=== PATIENT | female | born 1965 | race Caucasian/White ===

== ENCOUNTER 2017-04-25 11:56 | Day surgery (SDC) | payer OTHER ==
--- NOTE | 2017-04-24 10:27 | HP ---
[facility] - Chief Complaint Chief Complaint: right knee pain - Past Medical History Allergies/Adverse Reactions: Allergies Allergy/AdvReac Type Severity Reaction Status Date / Time No Known Drug Allergies Allergy Verified 04/11/17 14:06 ...LMP: 12/26/16 - Current Medications Current Medications: Home Medications Medication Instructions Recorded Atorvastatin Ca [Lipitor] 20 mg PO HS 04/11/17 Cholecalciferol (Vitamin D3) 50,000 unit PO WEEKLY 04/11/17 [Vitamin D3] Lisinopril 10 mg PO HS 04/11/17 Metformin HCl 500 mg PO HS 04/11/17 Metoprolol Tartrate 25 mg PO HS 04/11/17 Satellite Physical Exam - Physical Examination General Appearance: Well Nourished, Well Developed, Alert & Oriented x3 ENT: Clear Lung: Normal air movement Heart: Regular rate & rhythm Extremities: Other (right knee- + swelling, + ttp medially, decr rom, nvi xrays show severe medial compartment djd) Neurological: Intact, Alert, Oriented Satellite Impression/Plan - Impression/Plan Impression: right medial djd Operative Procedure: right medial isidro ukr Date to be Performed: 04/25/17
[2017-04-25 12:23] VITALS: BMI 35.7
[2017-04-25] MEDS ORDERED: CEFAZOLIN 1 GM/D5W 50 ML IVPB ONE (12:33)
[2017-04-25] MEDS ORDERED: CELECOXIB 200 MG CAPSULE PO ONE ×2 (12:33→12:55)
[2017-04-25] MEDS ORDERED: TRANEXAMIC ACID 1000 MG/10 ML VIAL IVPUSH ONE (12:33)
[2017-04-25] MEDS ORDERED: GABAPENTIN 300 MG CAPSULE (FP) PO ONE ×2 (12:33→12:55)
[2017-04-25] MEDS ORDERED: ROPIVICAINE 0.2%/MORPH PF/KETOROLAC - 51ML DISP.SYRINGE IA ONE ×3 (12:33→16:39)
[2017-04-25] MEDS ORDERED: oxyCODONE HCL 10 MG SUSTAINED ACTING TABLET PO ONE ×2 (12:33→12:55)
[2017-04-25] MEDS ORDERED: ceFAZolin SODIUM 1 GM VIAL ONE ×2 (13:21→13:23)
[2017-04-25] MEDS ORDERED: VANCOMYCIN 1,000 MG VIAL (RESTRICTED TO ID ONLY) ONE (13:21)
[2017-04-25] MEDS ORDERED: ONDANSETRON 4 MG/2 ML VIAL IVPUSH PRN (14:20)
[2017-04-25] MEDS ORDERED: oxyCODONE HCL 5 MG TABLET PO PRN (14:21)
[2017-04-25] MEDS ORDERED: LACTATED RINGERS SOLUTION 1,000 ML IV SCH ×2 (14:30→17:45)
[2017-04-25] MEDS ORDERED: THROMBIN (BOVINE) 5,000 UNIT VIAL TP ONE ×2 (16:22→16:44)
[2017-04-25] MEDS ORDERED: GELATIN, ABSORBABLE 100 EACH SPONGE TP ONE (16:22)
[2017-04-25] MEDS ORDERED: VANCOMYCIN 1,000 MG VIAL (RESTRICTED TO ID ONLY) IVPB ONE (16:39)
[2017-04-25] MEDS ORDERED: GELATIN, ABSORBABLE 12-7MM EACH SPONGE TP ONE (16:44)
[2017-04-25] MEDS ORDERED: ONDANSETRON 4 MG/2 ML VIAL IVPB PRN (17:33)
[2017-04-25] MEDS ORDERED: MAG HYDROX/AL HYDROX/SIMETH 30 ML UNIT-DOSE CUP PO PRN (17:33)
--- NOTE | 2017-04-25 17:35 | OP ---
Operative Note - Note: Operative Date: 04/25/17 (tiki) Pre-Operative Diagnosis: right knee medial djd Operation: right medial isidro ukr Post-Operative Diagnosis: Same as Pre-op Surgeon: Poli Leavitt Nuclear Radiation Engineer: Stephen Candelaria Anesthesia: Spinal, Local Specimens Removed: bone fragments Estimated Blood Loss (mls): 100 Operative Report Dictated: Yes
[2017-04-25] MEDS ORDERED: PROMETHAZINE HCL 25 MG/1 ML VIAL ONE (18:33)
[2017-04-25] MEDS ORDERED: PROMETHAZINE HCL 25 MG/1 ML VIAL IVPUSH ONE (18:35)
--- NOTE | 2017-04-25 19:39 | SPEC ---
DATE OF OPERATION: DATE OF DICTATION: 04/25/2017 PREOPERATIVE DIAGNOSIS: Right knee medial compartment osteoarthritis. POSTOPERATIVE DIAGNOSIS: Right knee medial compartment osteoarthritis. PROCEDURE: Right knee robotically assisted partial knee replacement/Makoplasty with navigation (right knee medial Makoplasty). SURGEON: Mile Carrion M.D. MANAGER SECURITY: Caleb Fitzgerald ANESTHESIA: Spinal anesthesia with sedation. DRAINS: None. COMPLICATIONS: None. SPECIMEN: Cartilage and bone right knee. BLOOD LOSS: None. BLOOD GIVEN: None. FLUID REPLACEMENT: 700 mL. INDICATION: The patient is a 51-year-old female with preoperative diagnosis of significant grade 4 osteoarthritis of the medial compartment of the right knee and clinical pain in the medial compartment. After understanding the potential risks, complications, alternatives, benefits to surgery versus nonsurgical treatment, the patient elected to pursue this procedure. DESCRIPTION OF PROCEDURE: The patient was brought into the operating room, peripheral IV placed and IV sedation given. One gram of IV Ancef was given. Spinal anesthesia and then MAC anesthesia was induced. Tourniquet was applied. The right upper leg was prepped and draped in the usual sterile fashion. The preoperative CT scan, the computer, and the robot were brought into position. The two femoral Eligio pins were placed by making the appropriate measurement and then using a No. 15 scalpel blade to cut through the skin and a hemostat to dissect down to the anterior aspect of the femur and the anterior aspect of the tibia. The tibia and femoral arrays were placed. A 3.5-inch incision was made along the medial aspect of the knee joint, patella and proximal tibia. Subcutaneous hemostasis was achieved with the Bovie cautery. Dissection was done with the Bovie down to the knee retinaculum which was incised, the thick synovial fluid evacuated. There were some osteophytes on the medial aspect of the patella which were debrided with the rongeur. After the patelloplasty, some small bleeders were cauterized and Hohmann retractors were placed to retract the medial soft tissues on the proximal aspect of the tibia and some mild amount of periosteal dissection was performed. Once this was done, exposing the proximal and medial tibia and the proximal and medial femur, the two positioning buttons were placed. Next, using the green sensor, we began positioning with both the medial and lateral malleolus and then putting the knee through progressively larger circles in a clockwise direction, gaining location data with the femoral and tibial array. Next, we did a medial meniscectomy and correlated the femoral and tibial positions with the positioner and the buttons. Next, we registered 40 points of position with a combination of the handheld registration device and the arrays in the computer. Once this was done, we put the knee through a range of motion. The patient had a small varus forming and a small flexion contraction both of which were corrected, taking multiple measurements including at 0 degrees, 30 degrees, 60 degrees, 90 degrees and 120 degrees. Once this was done and we evaluated the flexion and extension tension graphs and it was seen to be quite good and I was quite happy with the tension throughout the full range of motion. No other adjustments were needed to be made. This was a size No. 4 medial femur and size No. 3 medial tibial component with an 8mm polyethylene tray. We locked in the prosthesis size combination, and began our resection. The robot was brought into place. Registration was done. Using the standard Makoplasty technique, I was able to use a round aga to take out the appropriate amount of bone from the distal femur and the proximal tibia. The area was copiously irrigated and washed out. A rongeur was used to take away some marginal osteophytes and overhanging cartilage. It all looked quite good; it was quite smooth. I saw no reason for any additional resection. We then put the leg up, applied the tourniquet to 300 mmHg. We used Thrombin-soaked Gelfoam on the bony beds for hemostasis and then a dry lap pad. We mixed one bag of Simplex cement. We opened the real prosthesis, which would be the Makoplasty medial femur No. 4 and the medial Makoplasty tibial No. 5. These were precoated on their undersurface with cement. The Thrombin-soaked Gelfoam was removed, the area copiously irrigated and washed out, dried, and cement placed into the holes and onto the bone, first of the femur. The femoral component was applied, tapped into place. The excess cement was removed and then the same procedure for the tibia. Once the excess cement was all removed, I put in a No. 8 trial polyethylene tray and put the knee into extension for more compression. I was able to put the knee through a full range of motion, achieving full extension, full flexion well past 100 degrees overall. I was quite happy with the position of the prosthesis. We let it dry. Excess cement was removed. Again, it was tested, seen to be quite good and therefore, a real polyethylene tray was placed in the knee. Once this was done, the area was copiously irrigated and washed out again. A Hemovac drain was placed. The deep knee retinaculum was repaired with No. 1 Tycron suture, 2-0 Vicryl sutures to close the deep dermal layer. Final skin reapproximation was done with a running subcuticular 3-0 V-Loc suture. 3-0 nylon was used to close the proximal and distal holes where the Steinmann pins were for the femoral and tibial arrays. The area was copiously irrigated and washed out, covered in Xeroform. A cocktail of Morphine and Bupivacaine was injected in and around the soft tissue of the knee. The main incision was covered with Steri strips as well. The area was also covered with 4 x 4 gauze, ample Webril, ABDs, and Anthony bandages. The tourniquet was taken down after only being up for 20 minutes. There were no complications during the case. The patient tolerated the procedure quite well and was brought to the regular recovery room in stable condition. Total operative time 65 minutes. Size of femoral component is a 3, tibial component is a 3, and the polyethylene inset is a 10-mm. There were no complications during the case. There was no blood loss. The patient tolerated the procedure quite well and was brought to the regular recovery room in stable condition. MILE CARRION M.D. [id number]
[2017-04-25] MEDS: CEFAZOLIN 2 GM/D5W 50 ML IVPB SCH (21:20)
[2017-04-25] MEDS: SENNOSIDES/DOCUSATE COMBO (SENNA PLUS) TABLET (UD) PO SCH (21:21)
[2017-04-25] MEDS: INSULIN SLIDING SCALE (NOVOLOG) 1 VIAL SQ SCH (21:21)
[2017-04-25] MEDS: oxyCODONE HCL 5 MG TABLET PO PRN (21:39)
[2017-04-25] MEDS ORDERED: ATORVASTATIN CA 20 MG TABLET (FP) PO SCH (22:00)
[2017-04-25] MEDS: LISINOPRIL 10 MG TABLET (FP) PO SCH (22:28)
[2017-04-26] MEDS: oxyCODONE HCL 5 MG TABLET PO PRN ×3 (01:16→15:56)
[2017-04-26] MEDS: CEFAZOLIN 2 GM/D5W 50 ML IVPB SCH (01:42)
[2017-04-26] MEDS: INSULIN SLIDING SCALE (NOVOLOG) 1 VIAL SQ SCH ×2 (06:24→14:23)
[2017-04-26] MEDS ORDERED: ASPIRIN 325 MG TABLET PO SCH (08:00)
--- NOTE | 2017-04-26 08:16 | PN ---
Progress Note (short form) - Note Progress Note: Ortho Pt seen and examined s/p right medial isidro ukr pod #1 Selected Entries 04/26/17 06:00 Temperature 97.7 F Pulse Rate 60 Respiratory 19 Rate Blood Pressure 105/49 dressing c/d/i, calf soft, nt rom 0-40, nvi a/p PT dvt ppx pain control d/c home today f/u in 1 week
--- NOTE | 2017-04-26 08:17 | DS ---
Physical Examination Vital Signs: Vital Signs Temperature 97.7 F 04/26/17 06:00 Pulse Rate 60 04/26/17 06:00 Respiratory Rate 19 04/26/17 06:00 Blood Pressure 105/49 04/26/17 06:00 O2 Sat by Pulse Oximetry (%) 94 L 04/26/17 06:30 Discharge Summary Reason For Visit: OSTEOARTHRITIS Procedures: Principal: s/p right medial isidro ukr Hospital Course: admitted for elective right medial isidro ukr, uneventful post-op, stable for d/c Condition: Good - Instructions Diet, Activity, Other Instructions: Post-op Instructions-Partial Knee Replacement Call the office for a follow-up appointment in 1 week - [phone] Aspirin 325mg daily for 6 weeks. Pain medication was sent into your pharmacy. Apply Graduated Compression Stockings (TEDs) to both lower extremities- remove daily for hygiene ONLY Apply Sequential Compression Device (SCDs) to both Lower extremities remove for PT and hygiene ONLY Apply cold packs to affected area for 15 minutes every 2 hours. Physical Therapist will come to your home for the first 5 days. You will be set up with outpatient PT at your first post-operative visit. Patient may ambulate as tolerated-encourage self care (at least every 2-3 hours while awake) with walker or cane Maintain Aquacel (waterproof) dressing to operative wound (will be removed by surgeon at first office visit) Shower with Aquacel dressing in place-if Aquacel integrity compromised, remove and apply dry sterile dressing and notify Orthopedist. DO NOT SHOWER unless Orthopedists approves without Aquacel dressing CONTACT THE OFFICE FOR ANY CHANGE IN YOUR CONDITION (for example-fever greater than 102 degrees,excessive bleeding from operative site, purulent drainage, severe swelling or pain) GO TO THE EMERGENCY ROOM IF THERE IS A MEDICAL EMERGENCY Knee Precautions: * Keep a rolled towel under affected heel while in bed or chair (to keep knee in extension) * Keep affected leg elevated except during mealtimes * DO NOT PLACE PILLOW UNDER AFFECTED KNEE * If you have any questions, please do not hesitate to call the office - [phone]. Referrals: Poli Leavitt MD [Staff Physician] - Disposition: VNS/HOME HEALTH CARE - Home Medications Comprehensive Discharge Medication List: Ambulatory Orders Atorvastatin Ca [Lipitor] 20 mg PO HS 04/11/17 Cholecalciferol (Vitamin D3) [Vitamin D3] 50,000 unit PO WEEKLY 04/11/17 Lisinopril 10 mg PO HS 04/11/17 Metformin HCl 500 mg PO HS 04/11/17 Metoprolol Tartrate 25 mg PO HS 04/11/17 Aspirin [ASA -] 325 mg PO DAILY@0800 tablet 04/25/17 Oxycodone HCl/Acetaminophen [Percocet 5-325 mg Tablet] 1 - 2 tab PO Q6H #50 tab MDD 8 04/25/17
[2017-04-26] MEDS: SENNOSIDES/DOCUSATE COMBO (SENNA PLUS) TABLET (UD) PO SCH (09:28)
[2017-04-26] MEDS: LISINOPRIL 10 MG TABLET (FP) PO SCH (09:28)
--- NOTE | 2017-04-26 09:38 | PN ---
Progress Note (short form) - Note Progress Note: Anesthesiology Post-op/Pain Service POD#1 s/p Right knee MAKOplasty under regional/neuraxial anesthesia. Pt. feeling well, with overall good pain control and is able to participate in PT. VSS.
[2017-04-26] MEDS ORDERED: PANTOPRAZOLE 40 MG TABLET (FP) PO SCH (10:00)
[2017-04-26] MEDS ORDERED: METOPROLOL TARTRATE 25 MG TABLET (FP) PO SCH (10:00)
[2017-04-26] MEDS ORDERED: MULTIVITAMINS (DAILY MVI) TABLET (FP) PO SCH (10:00)
[2017-04-26 14:32] VITALS: BP 102/45; PULSE 55; TEMP 97.8
[2017-04-26] MEDS ORDERED: metFORMIN HCL 500 MG TABLET (FP) PO SCH (16:30)
== END 2017-04-26 16:30 | disposition home health service (06) ==
LOC: FASU 11:56 → FM/S 19:35 → FASU 04-26 16:30
PROVIDERS: ATTEND Orthopaedic Surgery
PROC: 8E0YXBZ Computer Assisted Procedure of Lower Extremity (ICD-10-PCS; 2017-04-25)
PROC: 8E0Y0CZ Robotic Assisted Procedure of Lower Extremity, Open Approach (ICD-10-PCS; 2017-04-25)
PROC: 0SRC0L9 Replacement of Right Knee Joint with Medial Unicondylar Synthetic Substitute, Cemented, Open Approach (ICD-10-PCS; principal; 2017-04-25 15:43)
DX: M17.11 Unilateral primary osteoarthritis, right knee (principal)
CPT/HCPCS: 20985; 27446; C1776; S2900; 73560-TC-RT; 84703; 94010; 94760; 97010-GP; 97116-GP; 97161-GP

== ENCOUNTER 2023-12-10 08:53 | Emergency (ER) | payer OTHER ==
[2023-12-10 09:06] VITALS: BP 135/64; PULSE 75; RESP 18; TEMP 98.4; BMI 32.9
[2023-12-10] MEDS ORDERED: ACETAMINOPHEN 500 MG TABLET (FP) ONE (09:49)
[2023-12-10] MEDS: ACETAMINOPHEN 500 MG TABLET (FP) PO ONE (09:51)
== END 2023-12-10 11:00 | disposition home or self-care (01) ==
LOC: JERFT 08:53
DX: S69.91XA Unspecified injury of right wrist, hand and finger(s), initial encounter (principal); W01.0XXA Fall on same level from slipping, tripping and stumbling without subsequent striking against object, initial encounter
CPT/HCPCS: 73110-TC-RT-FY; 73130-TC-RT-FY; 99283-25

== ENCOUNTER 2024-07-08 05:27 | Day surgery (SDC) | payer OTHER ==
[2024-07-05 12:47] VITALS: BMI 34.5
[2024-07-08 07:26] VITALS: TEMP 98
[2024-07-08 08:26] VITALS: RESP 16
[2024-07-08 09:00] VITALS: BP 133/57; PULSE 64
== END 2024-07-08 09:22 | disposition home or self-care (01) ==
LOC: JASU-ENDO 05:27
PROVIDERS: ATTEND Internal Medicine Gastroenterology
PROC: 0DJD8ZZ Inspection of Lower Intestinal Tract, Via Natural or Artificial Opening Endoscopic (ICD-10-PCS; principal; 2024-07-08 08:00)
DX: Z12.11 Encounter for screening for malignant neoplasm of colon (principal)
CPT/HCPCS: 82962